=== PATIENT | female | born 1935 | race Caucasian/White ===

== ENCOUNTER → 2019-10-30 | Outpatient (CLI) | payer MEDICARE, BC ==
[2016-01-23 12:40] VITALS: BP 151/79
[~2019-10-30] MED LIST: LEVO125T PO; OMEP20TA63 PO
--- NOTE | 2019-10-30 12:06 | RAD ---
THYROID ULTRASOUND History: Thyroid cyst Comparison: None. Findings: Multiple sonographic images of the thyroid gland are submitted. Right lobe measured 4.8 x 2.2 x 2.1 cm. Left lobe measured 5.5 x 2.3 x 1.8 cm. Isthmus measured 0.8 cm in AP thickness. There are multiple nodules bilaterally. Dominant, heterogeneous, superior right thyroid nodule measures 1.1 x 1 x 0.7 cm with some internal vascularity on color Doppler imaging. Dominant, mostly cystic lesion of the superior left gland with internal small focus of more solid echogenicity measures up to 2 x 2 x 1.7 cm, some vascularity at the periphery. Heterogeneous, partially hypoechoic nodule of the left aspect of the isthmus measures 1.3 x 1.1 x 0.8 cm with some internal vascularity on color Doppler imaging. Thyroid parenchyma is heterogeneous bilaterally, also with associated hypervascularity. Impression: 1. There is diffuse heterogeneity and hypervascularity of the thyroid parenchyma with multiple bilateral nodules, dominant nodules as stated. Electronically signed by: Pepito Lovell MD (10/30/2019 12:04 PM) [id number]
== END | disposition home or self-care (01) ==
LOC: US 10:50
PROVIDERS: ATTEND Internal Medicine
DX: E04.2 Nontoxic multinodular goiter (principal)
CPT/HCPCS: 76536

== ENCOUNTER 2019-12-28 23:43 | Emergency (ER) | payer MEDICARE, BC ==
[~2019-12-28] VITALS: Ht 157.5 cm; Wt 56.0 kg
[2019-12-28 23:50] VITALS: BP 157/97
[2019-12-29] MEDS ORDERED: LIDOCAINE 2%/EPI 1:100,000 20 ML VIAL. IJ ONE
[2019-12-29] MEDS ORDERED: NEOMY/BACITR/POLYMYXIN OINT PACKET. TP ONE
--- NOTE | 2019-12-29 00:15 | PHYS DOC ---
Past History Past Medical History: GERD, Hypothyroid Past Surgical History: Appendectomy Smoking: Non-smoker Alcohol Use: None Drug Use: None General Adult EDM: Chief Complaint: Head injuury HPI: HPI: 84-year-old female presents with report of scalp laceration after missing chair tonight at her home. Reports had felt dizzy just prior to fall. Denies chest pain. Reports headache. Reports took 2x 81mg ASA prior to arrival for the [facility]. Denies use of other blood thinners. Denies cough or SOA. Denies N/V/D. Denies fever/chills. Denies dysuria. Review of Systems: Review of Systems: Constitutional: Denies fever or chills Eyes: Denies redness or eye pain HENT: Denies nasal congestion or sore throat Respiratory: Denies cough or shortness of breath Cardiovascular: Denies chest pain or palpitations GI: Denies abdominal pain, nausea, or vomiting : Denies dysuria or hematuria Musculoskeletal: Denies back pain or neck pain Integument: Denies rash; reports scalp laceration Neurologic: Reports headache and dizziness; denies focal weakness or sensory changes Complete systems were reviewed and found to be within normal limits, except as documented in this note. Allergies: Allergies: Allergies Coded Allergies Type Severity Reaction Last Updated Verified Sulfa (Sulfonamide Antibiotics) Allergy Unknown 01/29/14 No Physical Exam: PE: Constitutional: Well developed, well nourished, no acute distress, non-toxic appearance HENT: Normocephalic, left occipital 3 cm laceration, oropharynx moist Eyes: PERRL, EOMI, conjunctiva normal, no discharge, no nystagmus Neck: Normal range of motion, no midline tenderness, supple Cardiovascular: Heart rate normal, regular rhythm Lungs & Thorax: Bilateral breath sounds clear to auscultation, no wheezing Abdomen: Soft, no tenderness; pelvis stable and nontender Skin: Warm, dry, no erythema, 3 cm laceration to left occiput Back: No tenderness, no CVA tenderness Extremities: No tenderness, ROM intact, no edema Neurologic: Alert and oriented X 3, normal motor function, normal sensory functi on, no focal deficits noted Psychologic: Affect normal, judgment normal EKG: EKG: @0005 NSR at 65 bpm, NO ST elevation, QRS 100ms, QT/QTc 414/431ms Radiology/Procedures: Radiology/Procedures: PROCEDURE: CT HEAD AND CERVICAL SPINE WO PQRS Compliance Statement: One or more of the following individualized dose reduction techniques were utilized for this examination: 1. Automated exposure control 2. Adjustment of the mA and/or kV according to patient size 3. Use of iterative reconstruction technique CT HEAD AND CERVICAL SPINE WITHOUT CONTRAST History: Pain, occipital laceration after fall. Dizziness. Comparison: None. Procedure: Axial images are obtained of the head from the skull base through the vertex without IV contrast. Noncontrast helical CT of the cervical spine was performed. Axial, sagittal, and coronal reconstructions were obtained. Findings: The ventricles and sulci are prominent, consistent with age-related cerebral atrophy. There is supratentorial white matter hypoattenuation. This is a nonspecific finding but is commonly due to chronic small vessel ischemic disease in a patient of this age. No mass-effect, midline shift, hemorrhage or obvious acute infarction is identified. Basilar cisterns are patent. Bone windows demonstrate no significant calvarial abnormality. The visualized paranasal sinuses are clear. Mastoid air cells are well aerated. There is no evidence of acute fracture or acute malalignment of the cervical spine. Multilevel facet hypertrophy. No perched or jumped facets are seen. There is mild grade 1 anterolisthesis of C2 on C3 and C3 on C4 and C7 on T1 and T1 on T2 there is disc space narrowing and uncinate process hypertrophy of C4/C5, C5/C6, and C6/C7. Probable hemangioma of the C4 vertebral body on the left. Mild retroodontoid soft tissue thickening. Heterogeneous multinodular appearing thyroid. 2 similar left thyroid nodule. Please refer to recently performed thyroid ultrasound report. The visualized lung apices are clear. IMPRESSION: 1. No acute intracranial abnormality. 2. No acute fracture of the cervical spine. Electronically signed by: Praveen Leo MD (12/29/2019 12:50 AM) [id number] Course & Med Decision Making: Course & Med Decision Making Pertinent Labs and Imaging studies reviewed. (See chart for details) Elderly patient presents with scalp laceration after fall tonight at her home. Patient neurologically intact but report dizziness prior to fall which is now resolved. NIHSS 0. EKG stable. Labs obtained and posted to chart. Troponin WNL. UA without signs of infection. Empiric antibiotic provided. Diflucan also provided due to yeast seen on UA. Tetanus updated. CT head/cervical spine without acute process. Wound cleaned, anesthetized, repaired with divine, and dressed with antibiotic ointment. Patient stable for discharge with outpatient follow-up with PCP. Discussed findings and plan with patient, who acknowledges understanding and agreement. Cary Disclaimer: Cary Disclaimer: This electronic medical record was generated, in whole or in part, using a voice recognition dictation system. Laceration/Wound Repair Laceration/Wound Repair : Wound Location: head Wound's Depth, Shape: superficial, linear Wound Length (cm): 3 Wound Explored: clean Irrigated w/ Saline (ccs): 100 Anesthesia: Lidocaine w/ Epi (2%) Volume Anesthetic (ccs): 2 Wound Debrided: moderate Progress Verbal consent obtained. Time out performed. Hand hygiene utilized. Wound cleaned with Hydrogen Peroxide. Anesthesia obtained via a 25-gauge hypodermic needle with (2) mL's of lidocaine 2% with epinephrine. Copious irrigation performed. 3cm wound well approximated with divine x 6. Patient tolerated procedure well and without difficulty. Empiric antibiotic ointment applied. Departure Departure: Impression: Primary Impression: Scalp laceration Qualified Codes: S01.01XA - Laceration without foreign body of scalp, initial encounter Additional Impressions: Dizziness UTI (urinary tract infection) Qualified Codes: N30.00 - Acute cystitis without hematuria Yeast cystitis Disposition: HOME, SELF-CARE Condition: STABLE Referrals: KWAME HALL MD (PCP) Patient Instructions: Coni Infection, Adult, Dizziness, [id number], Laceration Care, Adult, [id number], Urinary Tract Infection, [id number] Additional Instructions: Do not soak your wound. You may shower. Clean wound daily with soap and water. Change dressing 2 times daily. Use over the counter antibiotic ointment with each dressing change. Divine need to be removed in 7-10 days. Present to your family doctor or local urgent care for removal. You may also present to the ED but it will be an additional visit/charge. Scripts Fluconazole (DIFLUCAN) 200 Mg Tablet 1 TAB PO DAILY for yeast infection, #1 TAB Take upon completion of your antibiotics Prov: AFIA AUGUSTINE DO 12/29/19 Cephalexin (KEFLEX) 500 Mg Capsule 1 CAP PO TID for UTI for 7 Days, #21 CAP 0 Refills Prov: AFIA AUGUSTINE DO 12/29/19 NIHSS - ED NIH Stroke Scale: NIH Stroke Scale Response (Comments) Value Level of Consciousness: 0 Alert/Responsive 0 LOC Questions: 0 Answers both correctly 0 LOC Commands: 0 Performs both tasks 0 Best Gaze: 0 Normal 0 Visual: 0 No visual loss 0 Facial Palsy: 0 Normal, symmetrical 0 Motor - Left Arm 0 No drift 0 Motor - Right Arm 0 No drift 0 Motor - Left Leg 0 No drift 0 Motor: Right Leg 0 No drift 0 Limb Ataxia: 0 Absent 0 Sensory: 0 No loss 0 Best Language: 0 Normal 0 Dysathria: 0 Normal 0 Extinction and Inattention: 0 Normal 0 Total 0 AFIA AUGUSTINE DO December 29, 2019 00:15
[2019-12-29 00:24] LABS: BASO % 1 % (0-3); EOS # 0.2 x10^3/uL (0.0-0.7); EOS % 3 % (0-3); HEMATOCRIT 38.3 % (36.0-47.0); LYMPH # 2.3 x10^3/uL (1.0-4.8); LYMPH % 34 % (24-48); MEAN CORPUSCULAR HEMOGLOBIN 30 pg (25-35); MEAN CORPUSCULAR HGB CONC 34 g/dL (31-37); MEAN CORPUSCULAR VOLUME 88 fL (79-100); MONO # 0.6 x10^3/uL (0.0-1.1); MONO % 9 % (0-9); NEUT # 3.5 x10^3uL (1.8-7.7); NEUT % 53 % (31-73); PLATELET COUNT 209 x10^3/uL (140-400); RED BLOOD COUNT 4.35 x10^6/uL (3.50-5.40); RED CELL DISTRIBUTION WIDTH 13.7 % (11.5-14.5); WHITE BLOOD COUNT 6.6 x10^3/uL (4.0-11.0)
[2019-12-29 00:33] LABS: BACTERIA,URINE MOD /HPF (0-FEW); BILIRUBIN,URINE NEG (NEG); CLARITY,URINE HAZY; COLOR,URINE YELLOW; GLUCOSE,URINE NEG (NEG); NITRITE,URINE NEG (NEG); SQUAMOUS EPITHELIAL CELL,UR FEW /LPF; UROBILINOGEN,URINE 0.2 mg/dL (0.2 mg/dL)
[2019-12-29 00:34] LABS: CREATININE 0.9 mg/dL (0.6-1.0); GFR 59.9; YEAST,URINE PRESENT /HPF
[2019-12-29] MEDS ORDERED: FLUC200T PO (00:41)
[2019-12-29] MEDS ORDERED: CEPH-264 PO (00:41)
[2019-12-29] MEDS ORDERED: FLUCONAZOLE 100 MG TABLET. PO ONE (00:45)
[2019-12-29] MEDS ORDERED: DIPH,PERTUSS(ACELL),TET VAC/PF 0.5 ML SYRINGE. VAX IM ONE (00:45)
[2019-12-29] MEDS ORDERED: IV NORMAL SALINE 50ML 50 ML ONE (00:48)
[2019-12-29] MEDS ORDERED: cefTRIAXone SODIUM 1 GM VIAL ONE (00:49)
[2019-12-29 00:50] LABS: ALBUMIN 3.8 g/dL (3.4-5.0); ALBUMIN/GLOBULIN RATIO 1.5 (1.0-1.7); MAGNESIUM 2.3 mg/dL (1.8-2.4); TOTAL BILIRUBIN 0.6 mg/dL (0.2-1.0); TOTAL PROTEIN 6.4 g/dL (6.4-8.2)
--- NOTE | 2019-12-29 00:53 | RAD ---
PQRS Compliance Statement: One or more of the following individualized dose reduction techniques were utilized for this examination: 1. Automated exposure control 2. Adjustment of the mA and/or kV according to patient size 3. Use of iterative reconstruction technique CT HEAD AND CERVICAL SPINE WITHOUT CONTRAST History: Pain, occipital laceration after fall. Dizziness. Comparison: None. Procedure: Axial images are obtained of the head from the skull base through the vertex without IV contrast. Noncontrast helical CT of the cervical spine was performed. Axial, sagittal, and coronal reconstructions were obtained. Findings: The ventricles and sulci are prominent, consistent with age-related cerebral atrophy. There is supratentorial white matter hypoattenuation. This is a nonspecific finding but is commonly due to chronic small vessel ischemic disease in a patient of this age. No mass-effect, midline shift, hemorrhage or obvious acute infarction is identified. Basilar cisterns are patent. Bone windows demonstrate no significant calvarial abnormality. The visualized paranasal sinuses are clear. Mastoid air cells are well aerated. There is no evidence of acute fracture or acute malalignment of the cervical spine. Multilevel facet hypertrophy. No perched or jumped facets are seen. There is mild grade 1 anterolisthesis of C2 on C3 and C3 on C4 and C7 on T1 and T1 on T2 there is disc space narrowing and uncinate process hypertrophy of C4/C5, C5/C6, and C6/C7. Probable hemangioma of the C4 vertebral body on the left. Mild retroodontoid soft tissue thickening. Heterogeneous multinodular appearing thyroid. 2 similar left thyroid nodule. Please refer to recently performed thyroid ultrasound report. The visualized lung apices are clear. IMPRESSION: 1. No acute intracranial abnormality. 2. No acute fracture of the cervical spine. Electronically signed by: Praveen Leo MD (12/29/2019 12:50 AM) [id number]
--- NOTE | 2019-12-29 02:58 | EKG ---
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
== END 2019-12-29 01:30 | disposition home or self-care (01) ==
LOC: ER 23:43
DX: S01.01XA Laceration without foreign body of scalp, initial encounter (principal); B37.41 Candidal cystitis and urethritis; R42 Dizziness and giddiness; K21.9 Gastro-esophageal reflux disease without esophagitis; W18.39XA Other fall on same level, initial encounter; Y93.89 Activity, other specified; Y92.89 Other specified places as the place of occurrence of the external cause; Y99.8 Other external cause status
CPT/HCPCS: 12002; 36415; 70450; 72125; 80053; 81001; 82553; 83735; 84484; 85025; 85610; 85730; 87086; 90471; 90715; 93005; 96365; 99285; J0696

== ENCOUNTER 2020-01-19 17:47 | Emergency (ER) | payer MEDICARE, BC ==
[~2020-01-19] VITALS: Ht 157.5 cm; Wt 56.0 kg
[~2020-01-19 17:47] MED LIST changes: +CEPH-264 PO; +FLUC200T PO
[2020-01-19] MEDS ORDERED: IV RINGERS SOLUTION,LACTATED 1,000 ML IV SCH (18:28)
[2020-01-19] MEDS ORDERED: ONDANSETRON PF 4 MG/2 ML VIAL. IVP ONE (18:30)
[2020-01-19] MEDS ORDERED: FAMOTIDINE 20 MG/2 ML VIAL IVP ONE (18:30)
--- NOTE | 2020-01-19 18:44 | EKG ---
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
--- NOTE | 2020-01-19 19:05 | RAD ---
EXAM: Abdomen acute complete. HISTORY: Pain. COMPARISON: 07/21/2015 FINDINGS: A frontal view of the chest and frontal upright and supine views of the abdomen are obtained. There is no infiltrate, pleural effusion or pneumothorax. There is bilateral lower lobe atelectasis or scarring. The heart is normal in size. There is gas and stool within the colon. There is no evidence of bowel obstruction. There is no free air. There is thoracolumbar scoliosis. IMPRESSION: 1. Nonobstructive bowel gas pattern. 2. No acute pulmonary finding. Electronically signed by: Ara Franco MD (01/19/2020 7:02 PM) [facility]
[2020-01-19 19:26] LABS: BASO # 0.1 x10^3/uL (0.0-0.2); BASO % 1 % (0-3); EOS # 0.1 x10^3/uL (0.0-0.7); EOS % 1 % (0-3); HEMATOCRIT 38.8 % (36.0-47.0); HEMOGLOBIN 13.2 g/dL (12.0-15.5); LYMPH # 1.6 x10^3/uL (1.0-4.8); LYMPH % 20 % (24-48); MEAN CORPUSCULAR HEMOGLOBIN 30 pg (25-35); MEAN CORPUSCULAR HGB CONC 34 g/dL (31-37); MEAN CORPUSCULAR VOLUME 89 fL (79-100); MONO # 0.8 x10^3/uL (0.0-1.1); MONO % 10 % (0-9); NEUT # 5.4 x10^3uL (1.8-7.7); NEUT % 68 % (31-73); PLATELET COUNT 220 x10^3/uL (140-400); RED BLOOD COUNT 4.36 x10^6/uL (3.50-5.40); WHITE BLOOD COUNT 7.9 x10^3/uL (4.0-11.0)
[2020-01-19] MEDS ORDERED: SUCRALFATE 1 GM TABLET. PO ONE (19:30)
[2020-01-19] MEDS ORDERED: MAGNESIUM HYDROXIDE 2,400 MG/30 ML ORAL.SUSP. PO ONE (19:30)
[2020-01-19 19:34] LABS: BACTERIA,URINE 0 /HPF (0-FEW); BILIRUBIN,URINE NEG (NEG); CLARITY,URINE CLEAR; COLOR,URINE YELLOW; GLUCOSE,URINE NEG (NEG); NITRITE,URINE NEG (NEG); SQUAMOUS EPITHELIAL CELL,UR FEW /LPF; UROBILINOGEN,URINE 0.2 mg/dL (0.2 mg/dL); WBC,URINE OCC /HPF (0-4)
[2020-01-19 19:34] LABS: CALCIUM 9.1 mg/dL (8.5-10.1); CREATININE 0.9 mg/dL (0.6-1.0); GFR 59.9; POTASSIUM 3.3 mmol/L (3.5-5.1)
[2020-01-19 19:35] LABS: HYALINE CASTS, URINE FEW /HPF
[2020-01-19 19:36] LABS: BARBITURATES NEG (NEG); BENZODIAZEPINES NEG (NEG); CANNABINOIDS NEG (NEG); COCAINE NEG (NEG); METHADONE NEG (NEG); OPIATES NEG (NEG); PHENCYCLIDINE NEG (NEG)
[2020-01-19 19:37] LABS: AMPHETAMINE/METHAMPHETAMINE NEG (NEG)
[2020-01-19 19:40] LABS: ALBUMIN 3.8 g/dL (3.4-5.0); DIRECT BILIRUBIN 0.2 mg/dL (0.0-0.2); TOTAL BILIRUBIN 0.5 mg/dL (0.2-1.0); TOTAL PROTEIN 6.3 g/dL (6.4-8.2)
--- NOTE | 2020-01-19 21:20 | PHYS DOC ---
Past History Past Medical History: Arthritis, Constipation, GERD, Hypothyroid Past Surgical History: Appendectomy Smoking: Non-smoker Alcohol Use: None Drug Use: None General Adult EDM: Chief Complaint: ABDOMINAL PAIN HPI: HPI: "..My upper tummy..or stomach ...it been sticking me or bother me ever since I banged the back of my head weeks ago... I was at [facility] or [facility] back on November [address] thing and... They put me on some antibiotics that make me nauseated so I quit taking them... I just wanted to come in and see you have anything else I could do.. I usually see Dr. Hall..." Patient is a 84 year old female who presents with above hx and complaints some generalized abdomen pain. Does localize pain into the left lower quadrant on rebound. Patient seen previously at [facility] on 01/09/[address] was found to have small esophageal hernia and mid wall thickening of distal colon sigmoid colon and descending colon consistent with a diagnosis of colitis. Patient was started on a course of Cipro and Flagyl. However patient felt the meds made her nauseated so she stopped them. Patient still complaining of same symptoms that she had on presentation to [facility]. Patient denies any intake of bad food. No recent travel outside [place] area. No specific ill contacts. No history of trauma. No history immunosuppression. Normally follows with Dr. Hall. Review of Systems: Review of Systems: Constitutional: Denies fever or chills Eyes: Denies change in visual acuity HENT: Denies nasal congestion or sore throat Respiratory: Denies cough or shortness of breath Cardiovascular: Denies chest pain or edema GI: Complaints of Lt lower abdominal pain, nausea, and some upper Lt. abdomen pain. C/O of a "sticking..pain", Pt denies vomiting, bloody stools or diarrhea . Some hx of constipation. : Denies dysuria Musculoskeletal: Denies back pain or joint pain Integument: Denies rash Neurologic: Denies headache, focal weakness or sensory changes Endocrine: Denies polyuria or polydipsia Lymphatic: Denies swollen glands Psychiatric: Denies depression or anxiety Heart Score: HEART Score for Chest Pain: HEART Score for Chest Pain Response (Comments) Value History Slighlty/Non-Suspicious 0 ECG Nonspecific Repolarizatio 1 Age > 65 2 Risk Factors 1 or 2 Risk Factors 1 Troponin < Normal Limit 0 Total 4 Risk Factors: Risk Factors: DM, Current or recent (<one month) smoker, HTN, HLP, family history of CAD, obesity. Risk Scores: Score 0 - 3: 2.5% MACE over next 6 weeks - Discharge Home Score 4 - 6: 20.3% MACE over next 6 weeks - Admit for Clinical Observation Score 7 - 10: 72.7% MACE over next 6 weeks - Early Invasive Strategies Family History: Family History: Noncontributory to presentation Current Medications: Current Meds: Current Medications Medications (Trade) Dose Ordered Sig/Oscar Start Time Stop Time Status Last Admin Dose Admin Famotidine (Pepcid Vial) 20 mg 1X ONCE 01/19/20 18:30 01/19/20 18:33 DC 01/19/20 19:15 20 MG Lactated Ringer's 1,000 ml @ 1,000 mls/hr Q1H 01/19/20 18:28 01/19/20 19:27 DC 01/19/20 19:14 1,000 MLS/HR Magnesium Hydroxide (Milk Of Magnesia) 2,400 mg 1X ONCE 01/19/20 19:30 01/19/20 19:33 DC 01/19/20 19:38 2,400 MG Ondansetron HCl (Zofran) 4 mg 1X ONCE 01/19/20 18:30 01/19/20 18:33 DC 01/19/20 19:15 4 MG Sucralfate (Carafate) 1 gm 1X ONCE 01/19/20 19:30 01/19/20 19:33 DC 01/19/20 19:38 1 GM Allergies: Allergies: Allergies Coded Allergies Type Severity Reaction Last Updated Verified Sulfa (Sulfonamide Antibiotics) Allergy Unknown 01/29/14 No Physical Exam: PE: Constitutional: , no acute distress, non-toxic appearance. [] HENT: Normocephalic, atraumatic, bilateral external ears normal, oropharynx moist, no oral exudates, nose normal. Small scar on back of head Eyes: PERRLA, EOMI, conjunctiva normal, no discharge. [] Neck: Normal range of motion, no tenderness, supple, no stridor. [] Cardiovascular:Heart rate regular rhythm, no murmur , PMI slightly to the left Lungs & Thorax: Bilateral breath sounds equal at apex auscultation [] Abdomen: Bowel sounds normal, soft, left lower quadrant tenderness, no masses, no pulsatile masses. Mild distention. Old surgery scars. Rebound to left lower quadrant. Patient declined rectal exam and pelvic exam on this visit Skin: Warm, dry, no erythema, no rash. Poor turgor Back: No tenderness, no CVA tenderness. [] Extremities: No tenderness, no cyanosis, no clubbing, ROM intact, no edema. Arthritic changes. No left or right psoas sign Neurologic: Alert and oriented X 3, normal motor function, normal sensory function, no gross focal deficits noted. [] Does appear to have some memory problems. Psychologic: Affect anxious, judgement normal, mood normal. [] Current Patient Data: Labs: Laboratory Tests Test 01/19/20 19:08 01/19/20 19:15 White Blood Count 7.9 x10^3/uL (4.0-11.0) Red Blood Count 4.36 x10^6/uL (3.50-5.40) Hemoglobin 13.2 g/dL (12.0-15.5) Hematocrit 38.8 % (36.0-47.0) Mean Corpuscular Volume 89 fL (79-100) Mean Corpuscular Hemoglobin 30 pg (25-35) Mean Corpuscular Hemoglobin Concent 34 g/dL (31-37) Red Cell Distribution Width 13.0 % (11.5-14.5) Platelet Count 220 x10^3/uL (140-400) Neutrophils (%) (Auto) 68 % (31-73) Lymphocytes (%) (Auto) 20 % (24-48) L Monocytes (%) (Auto) 10 % (0-9) H Eosinophils (%) (Auto) 1 % (0-3) Basophils (%) (Auto) 1 % (0-3) Neutrophils # (Auto) 5.4 x10^3uL (1.8-7.7) Lymphocytes # (Auto) 1.6 x10^3/uL (1.0-4.8) Monocytes # (Auto) 0.8 x10^3/uL (0.0-1.1) Eosinophils # (Auto) 0.1 x10^3/uL (0.0-0.7) Basophils # (Auto) 0.1 x10^3/uL (0.0-0.2) Prothrombin Time 10.2 SEC (9.4-11.4) Prothrombin Time INR 1.0 (0.9-1.1) Activated Partial Thromboplast Time 24 SEC (23-33) Sodium Level 139 mmol/L (136-145) Potassium Level 3.3 mmol/L (3.5-5.1) L Chloride Level 102 mmol/L (98-107) Carbon Dioxide Level 27 mmol/L (21-32) Anion Gap 10 (6-14) Blood Urea Nitrogen 11 mg/dL (7-20) Creatinine 0.9 mg/dL (0.6-1.0) Estimated GFR (Cockcroft-Gault) 59.9 Glucose Level 116 mg/dL (70-99) H Calcium Level 9.1 mg/dL (8.5-10.1) Total Bilirubin 0.5 mg/dL (0.2-1.0) Direct Bilirubin 0.2 mg/dL (0.0-0.2) Aspartate Amino Transferase (AST) 31 U/L (15-37) Alanine Aminotransferase (ALT) 38 U/L (14-59) Alkaline Phosphatase 70 U/L (46-116) Creatine Kinase 47 U/L (26-192) Troponin I Quantitative < 0.017 ng/mL (0-0.055) Total Protein 6.3 g/dL (6.4-8.2) L Albumin 3.8 g/dL (3.4-5.0) Amylase Level 55 U/L (25-115) Lipase 120 U/L (73-393) Urine Collection Type Unknown Urine Color Yellow Urine Clarity Clear Urine pH 7.0 Urine Specific [place] 1.020 Urine Protein Neg (NEG-TRACE) Urine Glucose (UA) Neg mg/dL (NEG) Urine Ketones (Stick) Neg mg/dL (NEG) Urine Blood Small (NEG) Urine Nitrite Neg (NEG) Urine Bilirubin Neg (NEG) Urine Urobilinogen Dipstick 0.2 mg/dL (0.2 mg/dL) Urine Leukocyte Esterase Neg (NEG) Urine RBC 1-2 /HPF (0-2) Urine WBC Occ /HPF (0-4) Urine Squamous Epithelial Cells Few /LPF Urine Bacteria 0 /HPF (0-FEW) Urine Hyaline Casts Few /HPF Urine Mucus Mod /LPF Urine Opiates Screen Neg (NEG) Urine Methadone Screen Neg (NEG) Urine Barbiturates Neg (NEG) Urine Phencyclidine Screen Neg (NEG) Urine Amphetamine/Methamphetamine Neg (NEG) Urine Benzodiazepines Screen Neg (NEG) Urine Cocaine Screen Neg (NEG) Urine Cannabinoids Screen Neg (NEG) Urine Ethyl Alcohol Neg (NEG) Vital Signs: Vital Signs Date Time Temp Pulse Resp B/P (MAP) Pulse Ox O2 Delivery O2 Flow Rate FiO2 01/19/20 18:14 97.9 90 16 106/64 (78) 96 Room Air EKG: EKG: My interpretation EKG shows a sinus rhythm at 71 bpm. Leftward axis. Does have bimodal P waves. No findings of acute STEMI of contralateral changes. [] Radiology/Procedures: Radiology/Procedures: [][address] [address] IMAGING REPORT Signed PATIENT: BRAD HOFFMAN ACCOUNT: [id number] : 1935 LOCATION: ER AGE: 84 SEX: F EXAM STATUS: REG ER ORD. PHYSICIAN: CATHERINE HOSKINS MD REASON: Increased upper abdomen pain Hx. colitis PROCEDURE: ACUTE ABDOMEN SERIES EXAM: Abdomen acute complete. HISTORY: Pain. COMPARISON: 07/21/2015 FINDINGS: A frontal view of the chest and frontal upright and supine views of the abdomen are obtained. There is no infiltrate, pleural effusion or pneumothorax. There is bilateral lower lobe atelectasis or scarring. The heart is normal in size. There is gas and stool within the colon. There is no evidence of bowel obstruction. There is no free air. There is thoracolumbar scoliosis. IMPRESSION: 1. Nonobstructive bowel gas pattern. 2. No acute pulmonary finding. Electronically signed by: Ara Escudero MD (01/19/2020 7:02 PM) [facility] DICTATED AND SIGNED BY: ARA ESCUDERO MD DATE: 01/19/201901 CC: CATHERINE HOSKINS MD; KWAME HALL MD ~ Course & Med Decision Making: Course & Med Decision Making Pertinent Labs and Imaging studies reviewed. (See chart for details) Reviewed lab , ekg, xray finding at our hospital.. Patient currently declines admission. Will stay on a clear fluid diet for the next couple days. She will follow-up with Dr. Hall. Patient will re start her course of antibiotics. Recommend patient get an EGD and colonoscopy. Patient to push clear fluid fruit juices because of low potassium. Attempted to get [facility] records- Unable to obtain records from [facility] tonight. Impression: 1. Abdomen pain 2. Constipation 3. Hypokalemia to 3.3 4. Possible viral syndrome 5. Gastritis 6. CT documented colitis of descending colon and sigmoid colon-01/08 7. Small hiatal hernia 8. Noncompliance with medical plan and antibiotics [] Dragon Disclaimer: Dragon Disclaimer: This electronic medical record was generated, in whole or in part, using a voice recognition dictation system. Departure Departure: Disposition: HOME/RESIDENCE PRIOR TO ADM Condition: STABLE Referrals: KWAME HALL MD (PCP) Scripts Ondansetron Hcl (ZOFRAN) 8 Mg Tablet 8 MG PO QIDPRN PRN for NAUSEA, #30 BOTTLE Prov: CATHERINE HOSKINS MD 01/19/20 Cary Disclaimer This chart was dictated in whole or in part using Voice Recognition software in a busy, high-work load, and often noisy Emergency Department environment. It may contain unintended and wholly unrecognized errors or omissions. CATHERINE HOSKINS MD January 19, 2020 21:20
[2020-01-19] MEDS ORDERED: ONDA8TAB9 PO (21:51)
[2020-01-19 22:00] VITALS: BP 147/95
== END 2020-01-19 22:00 | disposition home or self-care (01) ==
LOC: ER 17:47
DX: K59.00 Constipation, unspecified (principal); E87.6 Hypokalemia; K29.70 Gastritis, unspecified, without bleeding; K52.89 Other specified noninfective gastroenteritis and colitis; K44.9 Diaphragmatic hernia without obstruction or gangrene; M19.90 Unspecified osteoarthritis, unspecified site; K21.9 Gastro-esophageal reflux disease without esophagitis; Z90.49 Acquired absence of other specified parts of digestive tract; Z91.14 Patient's other noncompliance with medication regimen; Z88.2 Allergy status to sulfonamides
CPT/HCPCS: 36415; 74022; 80048; 80076; 80307; 81001; 82150; 82550; 83690; 84484; 85025; 85610; 85730; 93005; 96361; 96374; 96375; 99285; J2405; J3490; J7120

== ENCOUNTER 2020-08-16 12:09 | Emergency (ER) | payer MEDICARE, BC ==
[~2020-08-16] VITALS: Ht 160 cm; Wt 57.3 kg
[~2020-08-16 12:09] MED LIST changes: +ONDA8TAB9 PO
--- NOTE | 2020-08-16 12:35 | PHYS DOC ---
Past History Past Medical History: Arthritis, Constipation, GERD, Hypothyroid Past Surgical History: Appendectomy Smoking: Non-smoker Alcohol Use: None Drug Use: None General Adult EDM: Chief Complaint: MECHANICAL FALL HPI: HPI: Patient is a 84-year-old female who presents for evaluation following a fall out of bed 2 days ago. Patient has had nausea since the fall and complains of left- sided rib pain and abdominal pain. Patient does not have a significant headache but did strike her head. Pain is moderate in severity with palpation and movement and mild at rest. Patient also complains of some lower thoracic and upper lumbar pain. Pain is described as discomfort radiating. Review of Systems: Review of Systems: Constitutional: Denies fever or chills Eyes: Denies change in visual acuity HENT: Denies nasal congestion or sore throat Respiratory: Denies cough or shortness of breath Cardiovascular: Complains of left chest wall pain GI: Complains abdominal pain with nausea but no vomiting or diarrhea : Denies dysuria Musculoskeletal: Complains of back pain Integument: Denies rash Neurologic: Denies headache, focal weakness or sensory changes Endocrine: Denies polyuria or polydipsia Lymphatic: Denies swollen glands Psychiatric: Denies depression or anxiety Current Medications: Current Meds: Current Medications Iohexol (Omnipaque 300 Mg/ml) 75 ml 1X ONCE IV Last administered on 08/16/20at 13:58; Start 08/16/20 at 13:45; Stop 08/16/20 at 13:46; Status DC Active Scripts Active Zofran (Ondansetron Hcl) 8 Mg Tablet 8 Mg PO QIDPRN PRN Diflucan (Fluconazole) 200 Mg Tablet 1 Tab PO DAILY Take upon completion of your antibiotics Keflex (Cephalexin) 500 Mg Capsule 1 Cap PO TID 7 Days Reported Prilosec Otc (Omeprazole Magnesium) 20 Mg Tablet.dr 20 Mg PO Synthroid (Levothyroxine Sodium) 125 Mcg Tablet 125 Mcg PO DAILYAC Allergies: Allergies: Allergies Coded Allergies Type Severity Reaction Last Updated Verified Sulfa (Sulfonamide Antibiotics) Allergy Unknown 01/29/14 No Physical Exam: PE: Constitutional: Well developed, well nourished, no acute distress, non-toxic appearance. [] HENT: Small bruise to the right mandible, no malocclusion bilateral external ears normal, oropharynx moist, no oral exudates, nose normal. [] Eyes: PERRLA, EOMI, conjunctiva normal, no discharge. [] Neck: Normal range of motion, no tenderness, supple, no stridor. [] Cardiovascular:Heart rate regular rhythm, peripheral pulses are intact cap refill is brisk Lungs & Thorax: Bilateral breath sounds clear, no respiratory distress, tender to palpate left lower ribs Abdomen: Soft with diffuse tenderness without guarding or rebound, no masses, no pulsatile masses. [] Skin: Warm, dry, no erythema, no rash. [] Back: Scoliosis with mild tenderness in the lower thoracic upper lumbar area Extremities: No tenderness, no cyanosis, no clubbing, ROM intact, no edema. [] Neurologic: Alert and oriented X 3, normal motor function, normal sensory function, no focal deficits noted. [] Psychologic: Affect normal, judgement normal, mood normal. [] Current Patient Data: Labs: Laboratory Tests Test 08/16/20 12:40 08/16/20 12:45 Urine Collection Type Unknown Urine Color Yellow Urine Clarity Clear Urine pH 7.0 Urine Specific Witt 1.020 Urine Protein Neg Urine Glucose (UA) Neg mg/dL Urine Ketones (Stick) Neg mg/dL Urine Blood Trace Urine Nitrite Neg Urine Bilirubin Neg Urine Urobilinogen Dipstick 0.2 mg/dL Urine Leukocyte Esterase Neg Urine RBC 1-2 /HPF Urine WBC 0 /HPF Urine Squamous Epithelial Cells Few /LPF Urine Bacteria 0 /HPF Urine Hyaline Casts Few /HPF Urine Mucus Mod /LPF White Blood Count 7.7 x10^3/uL Red Blood Count 4.52 x10^6/uL Hemoglobin 13.5 g/dL Hematocrit 40.7 % Mean Corpuscular Volume 90 fL Mean Corpuscular Hemoglobin 30 pg Mean Corpuscular Hemoglobin Concent 33 g/dL Red Cell Distribution Width 12.7 % Platelet Count 210 x10^3/uL Neutrophils (%) (Auto) 73 % Lymphocytes (%) (Auto) 18 % Monocytes (%) (Auto) 7 % Eosinophils (%) (Auto) 1 % Basophils (%) (Auto) 1 % Neutrophils # (Auto) 5.6 x10^3uL Lymphocytes # (Auto) 1.4 x10^3/uL Monocytes # (Auto) 0.5 x10^3/uL Eosinophils # (Auto) 0.1 x10^3/uL Basophils # (Auto) 0.0 x10^3/uL Sodium Level 140 mmol/L Potassium Level 3.3 mmol/L Chloride Level 104 mmol/L Carbon Dioxide Level 30 mmol/L Anion Gap 6 Blood Urea Nitrogen 21 mg/dL Creatinine 1.1 mg/dL Estimated GFR (Cockcroft-Gault) 47.6 BUN/Creatinine Ratio 19 Glucose Level 126 mg/dL Calcium Level 9.4 mg/dL Total Bilirubin 0.5 mg/dL Aspartate Amino Transf (AST/SGOT) 13 U/L Alanine Aminotransferase (ALT/SGPT) 18 U/L Alkaline Phosphatase 83 U/L Total Protein 6.9 g/dL Albumin 3.8 g/dL Albumin/Globulin Ratio 1.2 Lipase 119 U/L Current Medications Medications (Trade) Dose Ordered Sig/Oscar Route PRN Reason Start Time Stop Time Status Last Admin Dose Admin Iohexol (Omnipaque 300 Mg/ml) 75 ml 1X ONCE IV 08/16/20 13:45 08/16/20 13:46 DC 08/16/20 13:58 Vital Signs: Vital Signs Date Time Temp Pulse Resp B/P (MAP) Pulse Ox O2 Delivery O2 Flow Rate FiO2 08/16/20 12:20 98.4 77 20 188/69 (108) 98 Room Air EKG: EKG: [] Radiology/Procedures: Radiology/Procedures: [][place] [address] IMAGING REPORT Signed PATIENT: BRAD HOFFMAN ACCOUNT: [id number] : 1935 LOCATION: ER AGE: 84 SEX: F EXAM STATUS: REG ER ORD. PHYSICIAN: GRACIELA MENDOZA MD REASON: fall, blunt trauma PROCEDURE: CT CHEST ABD PELVIS W/CONTRAST EXAM: CT CHEST ABDOMEN AND PELVIS WITH CONTRAST CT THORACIC SPINE WITHOUT CONTRAST CT LUMBAR SPINE WITHOUT CONTRAST INDICATION: Blunt trauma, fall COMPARISON: None TECHNIQUE: Helical CT of the chest abdomen, and pelvis performed after the administration of 60 mL Omnipaque 300 intravenous contrast. Coronal and sagittal reformats were obtained. Multiplanar CT reformats of the thoracic and lumbar spine were obtained One or more of the following individualized dose reduction techniques were utilized for this examination: 1. Automated exposure control 2. Adjustment of the mA and/or kV according to patient size 3. Use of iterative reconstruction technique. FINDINGS: CHEST: Heart/Vasculature: Heart is normal in size. No pericardial effusion. Thoracic aorta is normal in caliber without evidence of dissection. Mediastinum and matthew: No lymphadenopathy. No pneumomediastinum. Small hiatal hernia. Lungs and pleura: Focal bronchiectasis with airway wall thickening and tree-in-bud nodules in the inferior lingula. The lungs are otherwise clear. No evidence of contusion. No pleural effusion or pneumothorax. Neck/Axilla/Body Wall: Multinodular thyroid gland, the largest nodule in the left measures 1.8 cm. No axillary lymphadenopathy. Breast tissue symmetric. Bones: No acute osseous abnormality in the chest. ABDOMEN AND PELVIS: Liver: Normal. Gallbladder/Biliary Tree: Normal. Pancreas: Normal. Spleen: Normal. Adrenal Glands: Normal. Kidneys/Ureters/Bladder: Kidneys are normal in size and enhance symmetrically. There are bilateral extrarenal pelvises small hiatal hernia. No hydronephrosis. Ureters and bladder are unremarkable. Reproductive Organs: Uterus is anteverted. No adnexal mass. Stomach, small bowel, and colon: Small hiatal hernia. No small bowel obstruction. Colon and appendix are normal. Vasculature: No abdominal aortic aneurysm. Mild calcified atherosclerosis. Lymph Nodes: No lymphadenopathy. Peritoneum and retroperitoneum: No free fluid or free air. Bones: No acute osseous abnormality in the abdomen and pelvis. CT THORACIC SPINE: No acute fracture or listhesis.. There is S-shaped scoliosis of the thoracic spine. Mild to moderate disc space narrowing. Mild atelectasis in the right lower lobe. Multinodular thyroid, as above. Hiatal hernia. Paraspinous musculature is normal. CT LUMBAR SPINE: No acute fracture. There is 2 mm retrolisthesis of L2 on L3 and L3-L4. S-shaped lumbar scoliosis. Mild to moderate disc space narrowing, greatest at L1-L2, L2- L3, and L4-L5. There are small disc bulges throughout the lumbar spine. Mild canal narrowing, greatest at L2-L3. No significant foraminal narrowing. There is calcified atherosclerosis in the abdominal aorta. Paraspinal muscular atrophy noted. IMPRESSION: 1. No acute traumatic abnormality in the chest, abdomen and pelvis. 2. No acute osseous abnormality of the thoracic or lumbar spine. 3. Focal bronchiectasis, airway wall thickening, and tree-in-bud nodularity in the lingula, suspicious for atypical infection such as MAC. 4. Multinodular thyroid gland. 5. Small hiatal hernia. 6. Thoracolumbar scoliosis with moderate degenerative disc disease. Electronically signed by: Teresa Britt MD (08/16/2020 3:21 PM) [id number] DICTATED AND SIGNED BY: TERESA BRITT MD DATE: 08/16/20 1502 CC: GRACIELA MENDOZA MD; KWAME HALL MD ~MTH0 0 [place] [address] IMAGING REPORT Signed PATIENT: BRAD HOFFMAN ACCOUNT: [id number] : 1935 LOCATION: ER AGE: 84 SEX: F EXAM STATUS: REG ER ORD. PHYSICIAN: GRACIELA MENDOZA MD REASON: fall, blunt trauma PROCEDURE: CT HEAD WO CONTRAST EXAM: CT head without contrast INDICATION: Fall, blunt trauma COMPARISON: CT head 12/28/2019 TECHNIQUE: Axial CT imaging through the head without intravenous contrast. One or more of the following individualized dose reduction techniques were utilized for this examination: 1. Automated exposure control 2. Adjustment of the mA and/or kV according to patient size 3. Use of iterative reconstruction technique. FINDINGS: Ventricles and sulci are mildly enlarged reflecting volume loss, unchanged. Zaidi-white matter differentiation is maintained. No intracranial hemorrhage, acute infarct, or mass lesion. Skull and scalp are intact. Visualized paranasal sinuses and mastoid air cells are clear. Globes and orbits are intact. IMPRESSION: No acute intracranial abnormality. Electronically signed by: Teresa Britt MD (08/16/2020 2:45 PM) [id number] DICTATED AND SIGNED BY: TERESA BRITT MD DATE: 08/16/20 1444 CC: GRACIELA MENDOZA MD; KWAME HALL MD ~MTH0 0 Heart Score: Risk Factors: Risk Factors: DM, Current or recent (<one month) smoker, HTN, HLP, family history of CAD, obesity. Risk Scores: Score 0 - 3: 2.5% MACE over next 6 weeks - Discharge Home Score 4 - 6: 20.3% MACE over next 6 weeks - Admit for Clinical Observation Score 7 - 10: 72.7% MACE over next 6 weeks - Early Invasive Strategies Course & Med Decision Making: Course & Med Decision Making Pertinent Labs and Imaging studies reviewed. (See chart for details) [] 84-year-old female presents with back and torso pain following a fall. Due to patient's age patient underwent CTs. Patient also had a head strike and due to her age over 65 she underwent a head CT , fortunately all imaging is negative for fractures or visceral injury. There is no evidence of intracranial hemorrhage on CT. Discussed with patient the results of her CTs and need for follow-up with pulmonary regarding her bronchiectasis. Patient is otherwise clinically stable for discharge outpatient follow-up. Dragon Disclaimer: Dragon Disclaimer: This electronic medical record was generated, in whole or in part, using a voice recognition dictation system. Departure Departure: Impression: Primary Impression: Head injury Additional Impressions: Blunt chest trauma Blunt abdominal trauma Back contusion Disposition: 01 DC HOME SELF CARE/HOMELESS Referrals: KWAME HALL MD (PCP) CHICA CRAWFORD MD 2-3 days Patient Instructions: Back Pain, Adult, Blunt Abdominal Trauma, Blunt Chest Trauma, Bronchiectasis, Head Injury, Adult Additional Instructions: EMERGENCY DEPARTMENT GENERAL DISCHARGE INSTRUCTIONS THANK YOU for coming to [facility] Emergency Department (ED) today and trusting us with your care. We trust that you had a positive experience in our Emergency Department. If you wish to speak to the department Management you can contact the emergency department at YOUR FOLLOW UP INSTRUCTIONS ARE FOLLOWS: Do you have a private doctor? If you do not have a private doctor, please ask for a resource list of physicians or clinics that may be able to assist you with follow up care. The Emergency Physician has interpreted your x-rays. The X-ray specialist will also review them. If there is a change in the findings you will be notified in 48 hours when at all possible. A lab test or lab culture may have been done, your results will be reviewed and you will be notified if you need a change in treatment. ADDITIONAL INSTRUCTIONS AND INFORMATION Your care today has been supervised by a physician who is specially trained in emergency care. Many problems require more than one evaluation for a complete diagnosis and treatment. We recommend that you schedule your follow up appointment as recommended to ensure complete treatment of your illness or injury. If you are unable to obtain follow up care and continue to have a problem, or if your condition worsens we recommend that you return to the ED. We are not able to safely determine your condition over the phone nor are we able to give sound medical advice over the phone. For these safety reasons, if you call for medical advice we will ask you to come to the ED for further evaluation If you have any questions regarding these discharge instructions please call the ED at SAFETY INFORMATION In the interest of safety, wellness, and injury prevention; we encourage you to wear your seatbelt, if you smoke; quit smoking, and we encourage your family to use protective helmet for bicycling and other sporting events that present an increased risk for head injury. IF YOUR SYMPTOMS WORSEN OR NEW SYMPTOMS DEVELOP, OR YOU HAVE CONCERNS ABOUT YOUR CONDITION; OR IF YOUR CONDITION WORSENS WHILE YOU ARE WAITING FOR YOUR FOLLOW UP AP POINTMENT; EITHER CONTACT YOUR PRIMARY CARE DOCTOR, THE PHYSICIAN WHOSE NAME AND NUMBER YOU WERE GIVEN, OR RETURN TO THE ED IMMEDIATELY. Please refer to the CAT scan results of your chest regarding findings concerning for bronchiectasis and need for follow-up with a pulmonary doctor GRACIELA MENDOZA MD Aug 16, 2020 12:35
[2020-08-16 13:10] LABS: BASO % 1 % (0-3); EOS # 0.1 x10^3/uL (0.0-0.7); EOS % 1 % (0-3); HEMATOCRIT 40.7 % (36.0-47.0); HEMOGLOBIN 13.5 g/dL (12.0-15.5); LYMPH # 1.4 x10^3/uL (1.0-4.8); LYMPH % 18 % (24-48); MEAN CORPUSCULAR HEMOGLOBIN 30 pg (25-35); MEAN CORPUSCULAR HGB CONC 33 g/dL (31-37); MEAN CORPUSCULAR VOLUME 90 fL (79-100); MONO # 0.5 x10^3/uL (0.0-1.1); MONO % 7 % (0-9); NEUT # 5.6 x10^3uL (1.8-7.7); NEUT % 73 % (31-73); PLATELET COUNT 210 x10^3/uL (140-400); RED BLOOD COUNT 4.52 x10^6/uL (3.50-5.40); RED CELL DISTRIBUTION WIDTH 12.7 % (11.5-14.5); WHITE BLOOD COUNT 7.7 x10^3/uL (4.0-11.0)
[2020-08-16 13:13] LABS: CALCIUM 9.4 mg/dL (8.5-10.1); CREATININE 1.1 mg/dL (0.6-1.0); GFR 47.6; POTASSIUM 3.3 mmol/L (3.5-5.1)
[2020-08-16 13:20] LABS: ALBUMIN 3.8 g/dL (3.4-5.0); ALBUMIN/GLOBULIN RATIO 1.2 (1.0-1.7); TOTAL BILIRUBIN 0.5 mg/dL (0.2-1.0); TOTAL PROTEIN 6.9 g/dL (6.4-8.2)
[2020-08-16] MEDS ORDERED: IOHEXOL 300 MG/ML 75 ML VIAL. IV ONE (13:45)
[2020-08-16 13:57] LABS: BACTERIA,URINE 0 /HPF (0-FEW); BILIRUBIN,URINE NEG (NEG); CLARITY,URINE CLEAR; COLOR,URINE YELLOW; GLUCOSE,URINE NEG (NEG); NITRITE,URINE NEG (NEG); UROBILINOGEN,URINE 0.2 mg/dL (0.2 mg/dL); WBC,URINE 0 /HPF (0-4)
[2020-08-16 13:58] LABS: HYALINE CASTS, URINE FEW /HPF; SQUAMOUS EPITHELIAL CELL,UR FEW /LPF
--- NOTE | 2020-08-16 14:47 | RAD ---
EXAM: CT head without contrast INDICATION: Fall, blunt trauma COMPARISON: CT head 12/28/2019 TECHNIQUE: Axial CT imaging through the head without intravenous contrast. One or more of the following individualized dose reduction techniques were utilized for this examinat ion: 1. Automated exposure control 2. Adjustment of the mA and/or kV according to patient size 3. Use of iterative reconstruction technique. FINDINGS: Ventricles and sulci are mildly enlarged reflecting volume loss, unchanged. Zaidi-white matter differe ntiation is maintained. No intracranial hemorrhage, acute infarct, or mass lesion. Skull and scalp ar e intact. Visualized paranasal sinuses and mastoid air cells are clear. Globes and orbits are intact. IMPRESSION: No acute intracranial abnormality. Electronically signed by: Teersa Britt MD (08/16/2020 2:45 PM) [id number]
--- NOTE | 2020-08-16 15:23 | RAD ---
EXAM: CT CHEST ABDOMEN AND PELVIS WITH CONTRAST CT THORACIC SPINE WITHOUT CONTRAST CT LUMBAR SPINE WITHOUT CONTRAST INDICATION: Blunt trauma, fall COMPARISON: None TECHNIQUE: Helical CT of the chest abdomen, and pelvis performed after the administration of 60 mL O mnipaque 300 intravenous contrast. Coronal and sagittal reformats were obtained. Multiplanar CT refor mats of the thoracic and lumbar spine were obtained One or more of the following individualized dose reduction techniques were utilized for this examinat ion: 1. Automated exposure control 2. Adjustment of the mA and/or kV according to patient size 3. Use of iterative reconstruction technique. FINDINGS: CHEST: Heart/Vasculature: Heart is normal in size. No pericardial effusion. Thoracic aorta is normal in mihai amira without evidence of dissection. Mediastinum and matthew: No lymphadenopathy. No pneumomediastinum. Small hiatal hernia. Lungs and pleura: Focal bronchiectasis with airway wall thickening and tree-in-bud nodules in the inf erior lingula. The lungs are otherwise clear. No evidence of contusion. No pleural effusion or pneumo thorax. Neck/Axilla/Body Wall: Multinodular thyroid gland, the largest nodule in the left measures 1.8 cm. No axillary lymphadenopathy. Breast tissue symmetric. Bones: No acute osseous abnormality in the chest. ABDOMEN AND PELVIS: Liver: Normal. Gallbladder/Biliary Tree: Normal. Pancreas: Normal. Spleen: Normal. Adrenal Glands: Normal. Kidneys/Ureters/Bladder: Kidneys are normal in size and enhance symmetrically. There are bilateral ex trarenal pelvises small hiatal hernia. No hydronephrosis. Ureters and bladder are unremarkable. Reproductive Organs: Uterus is anteverted. No adnexal mass. Stomach, small bowel, and colon: Small hiatal hernia. No small bowel obstruction. Colon and appendix are normal. Vasculature: No abdominal aortic aneurysm. Mild calcified atherosclerosis. Lymph Nodes: No lymphadenopathy. Peritoneum and retroperitoneum: No free fluid or free air. Bones: No acute osseous abnormality in the abdomen and pelvis. CT THORACIC SPINE: No acute fracture or listhesis.. There is S-shaped scoliosis of the thoracic spine. Mild to moderate disc space narrowing. Mild atelectasis in the right lower lobe. Multinodular thyroid, as above. Hiata l hernia. Paraspinous musculature is normal. CT LUMBAR SPINE: No acute fracture. There is 2 mm retrolisthesis of L2 on L3 and L3-L4. S-shaped lumbar scoliosis. Mi ld to moderate disc space narrowing, greatest at L1-L2, L2-L3, and L4-L5. There are small disc bulges throughout the lumbar spine. Mild canal narrowing, greatest at L2-L3. No significant foraminal narro wing. There is calcified atherosclerosis in the abdominal aorta. Paraspinal muscular atrophy noted. IMPRESSION: 1. No acute traumatic abnormality in the chest, abdomen and pelvis. 2. No acute osseous abnormality of the thoracic or lumbar spine. 3. Focal bronchiectasis, airway wall thickening, and tree-in-bud nodularity in the lingula, suspicio us for atypical infection such as MAC. 4. Multinodular thyroid gland. 5. Small hiatal hernia. 6. Thoracolumbar scoliosis with moderate degenerative disc disease. Electronically signed by: Teresa Britt MD (08/16/2020 3:21 PM) [id number]
[2020-08-16 15:40] VITALS: BP 161/73
== END 2020-08-16 15:45 | disposition home or self-care (01) ==
LOC: ER 12:09
DX: S30.0XXA Contusion of lower back and pelvis, initial encounter (principal); S09.8XXA Other specified injuries of head, initial encounter; R07.81 Pleurodynia; R11.0 Nausea; M19.90 Unspecified osteoarthritis, unspecified site; K21.9 Gastro-esophageal reflux disease without esophagitis; E03.9 Hypothyroidism, unspecified; Z90.89 Acquired absence of other organs; Z88.2 Allergy status to sulfonamides; W06.XXXA Fall from bed, initial encounter; Y93.89 Activity, other specified; Y92.89 Other specified places as the place of occurrence of the external cause; Y99.8 Other external cause status
CPT/HCPCS: 36415; 70450; 71260; 72128; 72131; 74177; 80053; 81001; 83690; 85025; 99285; Q9967